=== PATIENT | female | born 1980 | race Caucasian/White ===

== ENCOUNTER 2023-04-07 14:22 | Inpatient (IN) | payer MEDICAID, OTHER ==
--- NOTE | 2023-04-07 15:56 | ED ---
Psych HPI - General Chief Complaint: Psychiatric Symptoms Stated Complaint: depression Time Seen by Provider: 04/07/23 15:55 Source: patient, RN notes reviewed Mode of arrival: ambulatory - History of Present Illness Initial Comments: Patient is a 43-year-old female presenting to the ER for mental health evaluation. Patient states that she is suicidal. Patient states that she can think of ways of how she would have a plan but does not currently have a plan. Denies any drug or alcohol use. Patient denies any fevers, chills, shortness of breath, chest pain. - Related Data Home Medications Medication Instructions Recorded Confirmed No Known Home Medications 04/07/23 04/07/23 Allergies Allergy/AdvReac Type Severity Reaction Status Date / Time No Known Allergies Allergy Verified 04/07/23 18:19 Review of Systems ROS Statement: Those systems with pertinent positive or pertinent negative responses have been documented in the HPI. ROS Other: All systems not noted in ROS Statement are negative. Past Medical History Past Medical History: Asthma, COPD Past Surgical History: Orthopedic Surgery Past Psychological History: Anxiety, Bipolar Smoking Status: Current every day smoker Past Alcohol Use History: None Reported Past Drug Use History: None Reported General Exam - General Exam Comments Initial Comments: Visual Physical Exam Vital signs reviewed General: Well-appearing, nontoxic, no acute distress. Head: Normocephalic, atraumatic Eyes: PERRLA, EOMI ENT: Airway patent Chest: Nonlabored breathing Skin: No visual rash, normal skin tone Neuro: Alert and oriented 3 Musculoskeletal: No gross abnormalities Limitations: no limitations General appearance: alert, in no apparent distress Respiratory exam: Present: normal lung sounds bilaterally. Absent: respiratory distress, wheezes, rales, rhonchi, stridor Cardiovascular Exam: Present: regular rate, normal rhythm, normal heart sounds. Absent: systolic murmur, diastolic murmur, rubs, gallop, clicks Neurological exam: Present: alert, oriented X3, CN II-XII intact Psychiatric exam: Present: depressed, anxious, suicidal ideation Skin exam: Present: warm, dry, intact, normal color. Absent: rash Course Vital Signs 04/07/23 14:37 Temperature 98 F Pulse Rate 80 Respiratory 20 Rate Blood Pressure 116/70 O2 Sat by Pulse 98 Oximetry Medical Decision Making - Medical Decision Making Was pt. sent in by a medical professional or institution (, PA, GREEN MEAT GRADER, urgent care, hospital, or fci...) When possible be specific @ -No Did you speak to anyone other than the patient for history (EMS, parent, family, police, friend...)? What history was obtained from this source @ -No Did you review nursing and triage notes (agree or disagree)? Why? @ -I reviewed and agree with nursing and triage notes Were old charts reviewed (outside hosp., previous admission, EMS record, old EKG, old radiological studies, urgent care reports/EKG's, fci records)? Report findings @ -No old charts were reviewed Differential Diagnosis (chest pain, altered mental status, abdominal pain women, abdominal pain men, vaginal bleeding, weakness, fever, dyspnea, syncope, headache, dizziness, GI bleed, back pain, seizure, CVA, palpatations, mental health, musculoskeletal)? @ -[Differential Mental Health Depression, anxiety, bipolar, psychosis, schizophrenia, borderline personality, situational depression, adjustment disorder, behavioral disorder, brain tumor, malingering, substance abuse, encephalopathy, medication reaction, dementia, hypothyroidism, degenerative neurologic disorder, lupus.... This is not meant to be all-inclusive list EKG interpreted by me (3pts min.). @ -None X-rays interpreted by me (1pt min.). @ -None done CT interpreted by me (1pt min.). @ -None done U/S interpreted by me (1pt. min.). @ -None done What testing was considered but not performed or refused? (CT, X-rays, U/S, labs)? Why? @ -[Urine drug screen and urine hCG were ordered but not performed due to patient refusing. What meds were considered but not given or refused? Why? @ -None Did you discuss the management of the patient with other professionals (professionals i.e. GERMAINE Becerra, GREEN MEAT GRADER, lab, RT, psych nurse, social security assessor, telephone triage nurse, teacher, safety security officer, showcase maker)? Give summary @ -Yes, I discussed this case with Lisette from psych. She states patient will be admitted for further evaluation and care. Was smoking cessation discussed for >3mins.? @ -No Was critical care preformed (if so, how long)? @ -No Were there social determinants of health that impacted care today? How? ( Homelessness, low income, unemployed, alcoholism, drug addiction, transportation, low edu. Level, literacy, decrease access to med. care, longterm, rehab)? @ -No Was there de-escalation of care discussed even if they declined (Discuss DNR or withdrawal of care, Hospice)? DNR status @ -No What co-morbidities impacted this encounter? (DM, HTN, Smoking, COPD, CAD, Cancer, CVA, ARF, Chemo, Hep., AIDS, mental health diagnosis, sleep apnea, morbid obesity)? @ -[Mental Health Was patient admitted / discharged? Hospital course, mention meds given and route, prescriptions, significant lab abnormalities, going to OR and other pertinent info. @ -[Admitted. Patient is a 43-year-old female presented ER chief complaint of a mental health evaluation. Upon examination, patient's vitals are stable. Physical exam was completed and patient was medically clear. BAT was 0.00. Urine drug screen and urine hCG were ordered but patient refused. I discussed this case with Lisette from psych and she stated patient will be admitted for further care. Patient received PO ativan for agitation in the ER. PRN Ativan was ordered. COVID swab was ordered for admission. Patient will be admitted for further evaluation and care by psychiatry. Undiagnosed new problem with uncertain prognosis? @ -No Drug Therapy requiring intensive monitoring for toxicity (Heparin, Nitro, Insulin, Cardizem)? @ -No Were any procedures done? @ -No Diagnosis/symptom? @ -Suicidal ideation/depression Acute, or Chronic, or Acute on Chronic? @ -Acute on chronic Uncomplicated (without systemic symptoms) or Complicated (systemic symptoms)? @ -Uncomplicated Side effects of treatment? @ -No Exacerbation, Progression, or Severe Exacerbation? @ -No Poses a threat to life or bodily function? How? (Chest pain, [place], [place], pneumonia, PE, COPD, DKA, ARF, appy, cholecystitis, CVA, Diverticulitis, Homicidal, Suicidal, threat to staff... and all critical care pts) @ -Yes - Lab Data Lab Results 04/07/23 Range/Units 19:31 SARS-CoV-2 (PCR) Not Detected (Not Detectd) Disposition Clinical Impression: Depression, Suicidal ideation Disposition: ADMITTED IP TO THIS HOSP Condition: Stable Time of Disposition: 22:23
[2023-04-07] MEDS: LORazepam 2 MG/ML INJ IM STA ×2 (20:35→21:22)
[2023-04-07] MEDS ORDERED: LORazepam 1 MG TAB PO STA (20:37)
[2023-04-07] MEDS ORDERED: MAG HYDROX/AL HYDROX/SIMETH 30 ML CUP PO PRN (21:50)
[2023-04-07] MEDS ORDERED: LORazepam 2 MG/ML INJ IM PRN (21:50)
[2023-04-07] MEDS ORDERED: HALOPERIDOL LACTATE 5 MG/ML 1 ML VIAL IM PRN (21:50)
[2023-04-07] MEDS ORDERED: MAGNESIUM HYDROXIDE 2,400 MG/30 ML CUP PO PRN (21:50)
[2023-04-07] MEDS ORDERED: traZODone HCL 50 MG TAB PO PRN (21:50)
[2023-04-07] MEDS ORDERED: OLANZapine 10 MG VIAL IM PRN (21:50)
[2023-04-07] MEDS ORDERED: LORazepam 1 MG TAB PO PRN (21:50)
[2023-04-08] MEDS: NICOTINE 21MG/24HR PATCH TRANSDERM SCH ×2 (00:07→08:41)
[2023-04-08 11:54] LABS: Basophils # (A) 0.1 k/uL (0-0.2); Basophils % (A) 1 %; Eosinophils # (A) 0.1 k/uL (0-0.7); Eosinophils % (A) 2 %; HGB 13.5 gm/dL (11.4-16.0); Lymphocytes # (A) 1.6 k/uL (1.0-4.8); Lymphocytes % (A) 33 %; MCH 29.2 pg (25.0-35.0); MCHC 32.2 g/dL (31.0-37.0); MCV 90.6 fL (80.0-100.0); Mean Platelet Volume 7.6; Monocytes # (A) 0.4 k/uL (0-1.0); Monocytes % (A) 8 %; Neutrophils # (A) 2.6 k/uL (1.3-7.7); Neutrophils % (A) 53 %; Platelet Count 258 k/uL (150-450); RBC 4.63 m/uL (3.80-5.40); RDW 13.3 % (11.5-15.5)
[2023-04-08 12:06] LABS: ALT 12 U/L (4-34); AST 22 U/L (14-36); African American GFR (CKD) >90 (>60 ml/min/1.73 sqM); Albumin 3.5 g/dL (3.5-5.0); Alkaline Phosphatase 69 U/L (38-126); Anion Gap 5 mmol/L; Blood Urea Nitrogen 14 mg/dL (7-17); Calcium 8.8 mg/dL (8.4-10.2); Carbon Dioxide 30 mmol/L (22-30); Chloride 101 mmol/L (98-107); Glucose 93 mg/dL (74-99); Non-African American GFR(CKD) >90 (>60 ml/min/1.73 sqM); Potassium 4.3 mmol/L (3.5-5.1); Sodium 136 mmol/L (137-145); Total Bilirubin 0.3 mg/dL (0.2-1.3); Total Protein 6.2 g/dL (6.3-8.2)
[2023-04-08] MEDS ORDERED: hydrOXYzine HCL 25 MG TAB PO PRN (12:13)
[2023-04-08] MEDS ORDERED: ALBUTEROL INHALER 60 PUFF/8 GM INHALER (MHU) INHALATION PRN (12:14)
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
[2023-04-08] MEDS: LURASIDONE 40 MG TAB PO SCH (13:08)
[2023-04-08 23:35] LABS: Chol/HDL Ratio 1.92 Ratio; LDL Cholesterol,Calculated 53.4 mg/dL (0.0-131.0); VLDL Calculation 10.68 mg/dL (5.00-40.00)
--- NOTE | 2023-04-09 02:07 | P.CONS ---
History of Present Illness - Reason for Consult Consult date: 04/08/23 - History of Present Illness The patient is a 43-year-old female currently experiencing homelessness with a PMH of polysubstance abuse who presented to the emergency room with complaints of depression and suicidal ideation. The patient reported intermittent right hip pain with occasional difficulty walking. She denied any additional complaints. Denied experiencing chest discomfort, shortness of breath, fever, chills, cough, nausea, vomiting, abdominal pain, diarrhea. Reports smoking 1 pack is significantly with marijuana abuse. Denied any additional substance use. Denied alcohol use. Review of systems: Pertinent positives and negatives as discussed in HPI, a complete review of systems was performed and all other systems are negative. Physical examination: General: non toxic, no distress, appears at stated age, normal weight Derm: no unusual rashes/lesions, no unusual ecchymoses, warm, dry Head: atraumatic, normocephalic, symmetric Eyes: EOMI, no lid lag, anicteric sclera ENT: Nose and ears atraumatic, no thrush, no pharyngeal erythema Neck: trachea midline, supple Mouth: no lip lesion, mucus membranes moist Cardiovascular: S1S2 reg, no murmur, no edema Lungs: CTA bilateral, no rhonchi, no rales , no accessory muscle use Abdominal: soft, nontender to palpation, no guarding Ext: no gross muscle atrophy, no contractures, Neuro: No gross focal neuro deficits noted Psych: Alert, oriented, appropriate affect Assessment: Right hip pain Tobacco and marijuana abuse Depression and suicidal ideation Imaging: None performed Data Review: Laboratory evaluation remarkable for WBC count 5.0, sodium 136, total protein 6 .2, HDL 69.9, and COVID-19 negative. Plan: Obtain right hip x-ray Advised on importance of tobacco and marijuana cessation Defer management of depression and suicidal ideation to primary psychiatry service Thank you for allowing us to participate in the care of this patient. We will follow peripherally. Do not hesitate to contact us with questions. Someone can be reached from the [facility] hospitalist group at all hours of the day at [phone]. Past Medical History Past Medical History: Asthma, COPD Past Surgical History: Orthopedic Surgery Past Psychological History: Anxiety, Bipolar Smoking Status: Current every day smoker Past Alcohol Use History: None Reported Past Drug Use History: None Reported Medications and Allergies Home Medications Medication Instructions Recorded Confirmed Type No Known Home Medications 12/09/23 12/09/23 History Allergies Allergy/AdvReac Type Severity Reaction Status Date / Time No Known Allergies Allergy Verified 04/07/23 18:19 Physical Exam Vitals: Intake and Output 04/08/23 04/08/23 04/09/23 14:59 22:59 06:59 Other: Weight 81.6 kg Results CBC & Chem 7: 04/08/23 11:23 04/08/23 11:23 Labs: Abnormal Lab Results - Last 24 Hours (Table) 04/08/23 Range/Units 11:23 Sodium 136 L (137-145) mmol/L Total Protein 6.2 L (6.3-8.2) g/dL HDL Cholesterol 69.90 H (40.00-60.00) mg/dL
[2023-04-09] MEDS: LURASIDONE 40 MG TAB PO SCH (09:04)
[2023-04-09] MEDS: NICOTINE 21MG/24HR PATCH TRANSDERM SCH (09:04)
[2023-04-09] MEDS: IBUPROFEN 600 MG TAB PO PRN (09:05)
--- NOTE | 2023-04-09 13:12 | P.PN ---
Progress Note - Text Progress Note Date: 04/09/23 Interval History: Patient was seen wandering the hallways and was directable and agreeable to sp alfonso with property underwriter in the office. Patient tearful during interview. States that she's just been sad, and now that she's taking medication, she's feeling a bit better. States she did not sleep well last night at all. States her mood and anxiety is mildly improving with medication. Spoke with patient about adding an antidepressant with her medication regimen, patient refused at this time. Patient focused on discharge. Explained to patient that she needs to be more stable, prior to discharge. Patient isolating to her room. At this time patient denies any suicidal or homical ideations, intent or plan. Patient denies any auditory, visual hallucinations and denies any paranoia or delusions. Patient denies any side effects from the medications and has been compliant with meds. Mental Status Exam Appearance: Appears stated age, disheveled, average body built, and no specific features. Attitude and Behavior: Engaged, cooperative, maintained eye contact during course of interview. Speech: fluent and non pressured. Mood: " sad but better" Affect: labile, improving mildly Thought form: Goal directed, linear, and relevant, not incoherent and no clang association. Thought content: Logical, non-delusional, positive suicidal ideation, denies homicidal thoughts, intentions, or plans. Perception: Denies any auditory/ visual or tactile hallucinations. Attention: No impairment. Orientation: Oriented to time, place, person, and situation. Insight & Judgment: impaired Impulse control: Impaired, imrpoving Assessment Bipolar disorder, most recent episode depressive. Alcohol use disorder, moderate, in sustained remission Plan: -Patient continues to meet criteria for inpatient psychiatric admission for symptom stabilization and safety. Patient has signed adult voluntary form and medication consent and was placed in patient's chart. -Medications: increase Latuda 60 mg by mouth with dinner for mood stabilization Trazodone 50 mg by mouth at bedtime scheduled for insomnia Hydroxyzine 25 mg by mouth 3 times a day when necessary for anxiety Continue when necessary psychiatric medications including Haldol for agitation and Ativan for severe anxiety/agitation -When necessary Ativan and Haldol for agitation/aggression. -NRT - [nicotine patch] -SW on board for discharge planning. Encouraged the patient to participate in milieu. d/c in 1-2 days, with a referral to a long term, as patient is currently homeless.
[2023-04-09] MEDS: LURASIDONE 60 MG TAB PO SCH (17:37)
[2023-04-09] MEDS ORDERED: LURASIDONE 40 MG TAB PO SCH (18:00)
[2023-04-09] MEDS: traZODone HCL 50 MG TAB PO SCH (20:22)
--- NOTE | 2023-04-10 10:28 | P.PN ---
Progress Note - Text Progress Note Date: 04/10/23 Interval History: Patient was seen wandering the hallways and was directable and agreeable to sp alfonso with data analyst report writer in the office. Patient less tearful during interview, because of her homelessness situation however does claim that she is mildly improving. States that she's feeling better today in terms of mood and anxiety. States she did sleep well last night. Patient is now attending groups, and not isolating in her room. Patient appears very talkative, and rambling at times. Spoke with patient about the benefits of adding Zoloft, and patient is agreeable to take it. At this time patient denies any suicidal or homicidal ideations, intent or plan. Patient denies any auditory, visual hallucinations and denies any paranoia or delusions. Patient denies any side effects from the medications and has been compliant with meds. insight and judgment mildly improving. Mental Status Exam: Appearance: Appears stated age, fair grooming and hygiene, average body build, and no specific features. Attitude and Behavior: Engaged, cooperative, maintained eye contact during course of interview. Speech: fluent and non pressured. Mood: "pretty good" Affect: labile, improving Thought form: Goal directed, linear, and relevant. focused on discharge Thought content: Logical, non-delusional, denies suicidal ideation, denies homicidal thoughts, intentions, or plans. Perception: Denies any auditory/ visual or tactile hallucinations. Attention: No impairment. Orientation: Oriented to time, place, person, and situation. Insight & Judgment: impaired, improving Impulse control: Impaired, improving Assessment Bipolar disorder, most recent episode depressive. Alcohol use disorder, moderate, in sustained remission Plan: -Patient continues to meet criteria for inpatient psychiatric admission for symptom stabilization and safety. Patient has signed adult voluntary form and me dication consent and was placed in patient's chart. -Medications: add Zoloft 50 mg qd for mood/anxiety, Latuda 60 mg by mouth with dinner for mood stabilization Trazodone 50 mg by mouth at bedtime scheduled for insomnia Hydroxyzine 25 mg by mouth 3 times a day when necessary for anxiety Continue when necessary psychiatric medications including Haldol for agitation and Ativan for severe anxiety/agitation -When necessary Ativan and Haldol for agitation/aggression. -NRT - nicotine patch -SW on board for discharge planning. Encouraged the patient to participate in milieu. d/c possibly Sunday/, with a referral to a [facility], as patient is currently homeless.
[2023-04-10] MEDS: NICOTINE 21MG/24HR PATCH TRANSDERM SCH ×2 (11:36→13:17)
[2023-04-10] MEDS: SERTRALINE 50 MG TAB PO SCH (11:36)
[2023-04-10] MEDS: LURASIDONE 60 MG TAB PO SCH (17:39)
[2023-04-10] MEDS: traZODone HCL 50 MG TAB PO SCH (20:23)
[2023-04-11] MEDS: SERTRALINE 50 MG TAB PO SCH (09:00)
[2023-04-11] MEDS: NICOTINE 21MG/24HR PATCH TRANSDERM SCH (09:00)
[2023-04-11 09:21] VITALS: BP 136/84; PULSE 110; RESP 17; TEMP 97.4
[2023-04-11] MEDS: IBUPROFEN 600 MG TAB PO PRN (09:31)
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
== END 2023-04-11 13:13 | disposition home or self-care (01) | DRG 753 ==
LOC: EC 14:22 → 3MHU 21:48
PROVIDERS: ADMIT Psychiatry & Neurology Psychiatry; ATTEND Psychiatry & Neurology Psychiatry
DX: F31.30 Bipolar disorder, current episode depressed, mild or moderate severity, unspecified (principal); G47.00 Insomnia, unspecified; R45.851 Suicidal ideations; F17.210 Nicotine dependence, cigarettes, uncomplicated; J44.9 Chronic obstructive pulmonary disease, unspecified; F12.10 Cannabis abuse, uncomplicated; R45.1 Restlessness and agitation; F10.11 Alcohol abuse, in remission; Z28.310 Unvaccinated for COVID-19; Z28.21 Immunization not carried out because of patient refusal; Z11.52 Encounter for screening for COVID-19; Z63.5 Disruption of family by separation and divorce; Z59.00 Homelessness unspecified; Z56.0 Unemployment, unspecified; Z71.51 Drug abuse counseling and surveillance of drug abuser; Z71.41 Alcohol abuse counseling and surveillance of alcoholic; Z71.89 Other specified counseling; Z79.899 Other long term (current) drug therapy; Z60.8 Other problems related to social environment; Z63.4 Disappearance and death of family member; Z91.51 Personal history of suicidal behavior
CPT/HCPCS: 80053; 80061; 82075; 83036; 84443; 85025; 87635; 99285

== ENCOUNTER 2024-02-19 13:22 | Inpatient (IN) | payer MEDICAID, OTHER ==
--- NOTE | 2024-02-19 14:34 | ED ---
Psych HPI - General Chief Complaint: Psychiatric Symptoms Stated Complaint: Suicidal ideations Time Seen by Provider: 02/19/24 14:07 Source: patient, RN notes reviewed Mode of arrival: ambulatory Limitations: no limitations - History of Present Illness Initial Comments: This is a 44-year-old female who presents to the emergency department for psychiatric evaluation. States that she is homeless and sleeping in a shed. She has been increasingly depressed as a result of her situation. Earlier today she had a plan to kill herself by overdosing on heroin. States that she does not currently feel that way, however she is very depressed and feels like she needs to be monitored here. Denies any homicidal ideations or auditory/visual hallucinations. States that she is supposed to be on psychiatric medication but is not taking any. Unsure what medication she is supposed to be taking. MD Complaint: feels depressed - Related Data Home Medications Medication Instructions Recorded Confirmed No Known Home Medications 02/19/24 02/19/24 Allergies Allergy/AdvReac Type Severity Reaction Status Date / Time tomato AdvReac Face gets Verified 02/19/24 16:54 blotchy Review of Systems ROS Statement: Those systems with pertinent positive or pertinent negative responses have been documented in the HPI. ROS Other: All systems not noted in ROS Statement are negative. Past Medical History Past Medical History: Asthma, COPD History of Any Multi-Drug Resistant Organisms: None Reported Past Surgical History: Orthopedic Surgery Past Psychological History: Anxiety, Bipolar Smoking Status: Current every day smoker Past Alcohol Use History: None Reported Past Drug Use History: None Reported General Exam Limitations: no limitations General appearance: alert, in no apparent distress Head exam: Present: atraumatic, normocephalic, normal inspection Respiratory exam: Present: normal lung sounds bilaterally. Absent: respiratory distress, wheezes, rales, rhonchi, stridor Cardiovascular Exam: Present: regular rate, normal rhythm, normal heart sounds. Absent: systolic murmur, diastolic murmur, rubs, gallop, clicks Neurological exam: Present: alert, oriented X3, CN II-XII intact Psychiatric exam: Present: normal affect, depressed Skin exam: Present: warm, dry, intact, normal color. Absent: rash Course Vital Signs 02/19/24 14:01 Temperature 98.1 F Pulse Rate 98 Respiratory 18 Rate Blood Pressure 143/74 O2 Sat by Pulse 97 Oximetry Medical Decision Making - Medical Decision Making This is a 44 year old female who presents to the emergency department for psychiatric evaluation. Was pt. sent in by a medical professional or institution? @ -No Did you speak to anyone other than the patient for history? @ -No Did you review nursing and triage notes? @ -Yes, and I agree, it is accurate with regards to the patient's symptoms. Were old charts reviewed? @ -No Differential Diagnosis? @ -Differential Mental Health Depression, anxiety, bipolar, psychosis, schizophrenia, borderline personality, situational depression, adjustment disorder, behavioral disorder, brain tumor, malingering, substance abuse, encephalopathy, medication reaction, dementia, hypothyroidism, degenerative neurologic disorder, lupus.... This is not meant to be all-inclusive list EKG interpreted by me (3pts min.)? @ -Not obtained X-rays interpreted by me (1pt min.)? @ -Not obtained CT interpreted by me (1pt min.)? @ -Not obtained U/S interpreted by me (1pt. min.)? @ -Not obtained What testing was considered but not performed? (CT, X-rays, U/S, labs)? Why? @ -None What meds were considered but not given? Why? @ -None Did you discuss the management of the patient with other professionals? @ -Yes, Sahil with [facility], who advised that the patient will sign herself in voluntarily for further psychiatric care Did you reconcile home meds? @ -No Was smoking cessation discussed for >3mins.? @ -No Was critical care preformed (if so, how long)? @ -No Were there social determinants of health that impacted care today? How? (Homelessness, low income, unemployed, alcoholism, drug addiction, transportation, low edu. Level, literacy, decrease access to med. care, [facility], rehab)? @ -Homelessness, contributing to her mental state. Was there de-escalation of care discussed even if they declined? (Discuss DNR or withdrawal of care, Hospice)? @ -No What co-morbidities impacted this encounter? (DM, HTN, Smoking, COPD, CAD, Cancer, CVA, Hep., AIDS, mental health diagnosis, sleep apnea, morbid obesity)? @ -Mental health diagnosis, substance abuse Was patient admitted / discharged? @ -Admitted. Patient's BAT was 0.0 and she was cleared for [facility] evaluation. [facility] evaluated the patient and determined her to meet criteria for inpatient psychiatric hospitalization due to worsening depression with suicidal ideations and plan to OD. She signed herself in voluntarily. Patient admitted to [facility] for further psychiatric care. UDS pending at the time of admission. Undiagnosed new problem with uncertain prognosis? @ -None Drug Therapy requiring intensive monitoring for toxicity (Heparin, Nitro, Insulin, Cardizem)? @ -None Were any procedures done? @ -None Diagnosis/symptom? @ -Suicidal ideations, depression Acute, or Chronic, or Acute on Chronic? @ -Acute Uncomplicated (without systemic symptoms) or Complicated (systemic symptoms)? @ -Uncomplicated Side effects of treatment? @ -None Exacerbation, Progression, or Severe Exacerbation] @ -Not applicable Poses a threat to life or bodily function? @ -Yes, the suicidal ideations can lead to . - Lab Data Lab Results 02/19/24 Range/Units 16:03 SARS-CoV-2 (PCR) Not Detected (Not Detectd) Disposition Clinical Impression: Depression, Suicidal ideations Disposition: TRANSFER TO PSYCH HOSP/UNIT
[2024-02-19] MEDS ORDERED: MAGNESIUM HYDROXIDE 2,400 MG/30 ML CUP PO PRN (17:49)
[2024-02-19] MEDS ORDERED: haloperidoL 5 MG TAB PO PRN (17:49)
[2024-02-19] MEDS ORDERED: HALOPERIDOL LACTATE 5 MG/ML 1 ML VIAL IM PRN (17:49)
[2024-02-19] MEDS ORDERED: ACETAMINOPHEN TAB 325 MG TAB PO PRN (17:49)
[2024-02-19] MEDS ORDERED: MAG HYDROX/AL HYDROX/SIMETH 355 ML BOTTLE PO PRN (17:49)
[2024-02-19] MEDS ORDERED: LORazepam 2 MG/ML INJ IM PRN (17:49)
[2024-02-19] MEDS: NICOTINE 14MG/24HR PATCH TRANSDERM SCH (20:43)
[2024-02-19] MEDS: LORazepam 1 MG TAB PO PRN (21:19)
--- NOTE | 2024-02-19 22:21 | P.PN ---
Progress Note - Text Progress Note Date: 02/19/24 Attempted to see the patient in the [facility] on 02/18 at 2100. The patient refused to be seen or be evaluated.
[2024-02-20 07:00] VITALS: RESP 16
--- NOTE | 2024-02-20 11:53 | P.HP ---
Psychiatric H&P - . H&P Date: 02/20/24 History & Physical: Allergies Allergy/AdvReac Type Severity Reaction Status Date / Time tomato AdvReac Face gets Verified 02/19/24 16:54 blotchy Vital Signs Temp 98.0 F 02/20/24 06:59 Pulse 83 02/20/24 06:59 Resp 16 02/20/24 06:59 BP 127/83 02/20/24 06:59 Pulse Ox 100 02/20/24 06:59 FiO2 Intake & Output 02/19/24 02/20/24 02/20/24 18:59 06:59 18:59 Weight 87.997 kg Laboratory Last Values SARS-CoV-2 (PCR) Not Detected (Not Detectd) 02/19/24 16:03 02/20/24 09:39 IDENTIFYING DATA: Patient is a 44-year-old but female, unemployed and currently homeless CHIEF COMPLAINT: Depression, suicidal thoughts HPI: Patient presented to the hospital with psychiatric concerns. Per ED note, "This is a 44-year-old female who presents to the emergency department for psychiatric evaluation. States that she is homeless and sleeping in a shed. She has been increasingly depressed as a result of her situation. Earlier today she had a plan to kill herself by overdosing on heroin. States that she does not currently feel that way, however she is very depressed and feels like she needs to be monitored here. Denies any homicidal ideations or auditory/visual hallucinations. States that she is supposed to be on psychiatric medication but is not taking any. Unsure what medication she is supposed to be taking." EPS evaluation in the ED revealed increased depression over the last 60 days with current suicidal thoughts with a plan to overdose on heroin. Patient seen and evaluated on the unit and was agreeable to speak to teletypewriter operator in office. She states feeling overwhelmed lately due to numerous psychosocial stressors including homelessness and being unemployed. She reports previously staying at a friend's house however friend was evicted and became upset at her due to friend's belongings being placed by the dumpster per the landlord. Patient states she was forced to sleep in a another friend's shed across the street for 1 night and that this was when her thoughts of not wanting to be here surfaced. She states not having any place to go or any money. She reports not feeling like herself ever since her mother in 2019 and she does not feel like she has fully grieved her loss. She reports sleep difficulties, hopelessness, low energy, poor concentration but reports good appetite. She denies any recent anxiety. Patient denies any suicidal or homicidal ideations intent or plan. At this time patient denies any auditory or visual hallucinations. Patient denies any flight of ideas racing thoughts and increased in goal directed behavior however does report a history of mateusz however has been stable for many years. Patient admits to using cannabis and cigarettes "whenever I have money". PAST PSYCHIATRIC HISTORY: Patient has a history of bipolar disorder and generalized anxiety disorder. Patient denies being on any psychiatric medications. Patient reports 2 prior inpatient hospitalizations, most recent being here on 03/2023. Patient denies any psychiatric outpatient follow-up but most recently was following [facility] however is currently closed. Patient denies any history of suicide attempts in the past. PMH: as per ER note ALLERGIES: as per EMR SUBSTANCE USE HISTORY: Patient has a history of alcohol use disorder however has not drank alcohol since 2011 FAMILY PSYCHIATRIC/SUBSTANCE USE HISTORY: Patient reports father has mental illness and abused alcohol SOCIAL HISTORY: Patient was born in [place]. She is currently homeless however was recently staying at a friend's house. She completed schooling up to ninth grade. She has 2 children and is currently however . She denies any legal history. MENTAL STATUS EXAM: General Appearance: Patient appears to be stated age is alert, directable, and attempts to cooperate. Patient appears to have fair hygiene and grooming. Behavior: Patient is seated without any agitated behavior. Patient ambulates with a limp. Patient was very tearful during encounter Speech: Patient's speech is fluent and nonpressured. Mood/Affect: Patient reports their mood is depressed, affect is congruent and constricted. Suicidality/Homicidality: Patient denies having any homicidal ideation intent or plan. Denies any suicidal ideations intent or plan Perceptions: Patient denies any visual hallucinations and denies any auditory hallucinations Though content/process: There is no evidence of any delusional thought content and thought process is linear and goal-directed. Memory and concentration: AOX3, grossly intact for the purposes of this session. Can spell "WORLD" backwards Judgment and insight: Fair STRENGTHS/WEAKNESSES: strength is that patient is resilient and she has been able to refrain from alcohol despite stressors. Weakness is that patient has poor judgment and is impulsive INTELLECT: Average IMPRESSIONS: Bipolar II disorder, current episode depressed Nicotine dependence Alcohol use disorder, in sustained remission PLAN: -Patient is admitted under voluntary status to MHU for stabilization of psychiatric symptoms and safety. Patient has signed adult voluntary form and medication consent and is placed in patient's chart. -Medications : Start Latuda 40 mg p.o. with dinner for depression, patient encouraged to consume at least 400 marga to increase absorption. Start trazodone 50 mg at bedtime for sleep -Ativan and Haldol PRN for agitation/aggression -Patient was informed of the risks, benefits and side effects of the medication and patient verbally consented to taking the medications. Patient signed med consent form and was placed in chart. -Internal Medicine consult to perform medical evaluation and physical. -NRT -nicotine patch -SW on board for discharge planning. Encourage patient to participate in groups to work on coping skills. Anticipate discharge to sober living community such as [facility] or [facility], either late this week or early next week
[2024-02-20 13:01] LABS: Basophils % (A) 1 %; Eosinophils # (A) 0.1 k/uL (0-0.7); Eosinophils % (A) 1 %; HCT 41.5 % (34.0-46.0); HGB 13.8 gm/dL (11.4-16.0); Lymphocytes # (A) 1.9 k/uL (1.0-4.8); Lymphocytes % (A) 28 %; MCH 29.7 pg (25.0-35.0); MCHC 33.2 g/dL (31.0-37.0); MCV 89.6 fL (80.0-100.0); Mean Platelet Volume 7.5; Monocytes # (A) 0.6 k/uL (0-1.0); Monocytes % (A) 8 %; Neutrophils # (A) 4.1 k/uL (1.3-7.7); Neutrophils % (A) 61 %; Platelet Count 255 k/uL (150-450); RBC 4.63 m/uL (3.80-5.40); RDW 13.6 % (11.5-15.5); WBC 6.8 k/uL (3.8-10.6)
[2024-02-20 13:24] LABS: ALT 17 U/L (4-34); AST 27 U/L (14-36); African American GFR (CKD) >90 (>60 ml/min/1.73 sqM); Albumin 3.9 g/dL (3.5-5.0); Alkaline Phosphatase 63 U/L (38-126); Anion Gap 4 mmol/L; Bilirubin, Delta 0.1 mg/dL (0.0-0.2); Bilirubin,Unconjugated 0.5 mg/dL (0.0-1.1); Blood Urea Nitrogen 15 mg/dL (7-17); Carbon Dioxide 29 mmol/L (22-30); Chloride 105 mmol/L (98-107); Glucose 74 mg/dL (74-99); Non-African American GFR(CKD) >90 (>60 ml/min/1.73 sqM); Potassium 4.3 mmol/L (3.5-5.1); Sodium 138 mmol/L (137-145); Total Bilirubin 0.6 mg/dL (0.2-1.3); Total Protein 6.5 g/dL (6.3-8.2)
[2024-02-20 15:19] LABS: Cocaine Screen,Urine Not Detected (NotDetected); Opiate Screen,Urine Not Detected (NotDetected); Phencyclidine Screen,Urine Not Detected (NotDetected); Urn Cannabinoid Scrn Detected (NotDetected)
[2024-02-20 15:20] LABS: Amphetamine Screen,Urine Detected (NotDetected); Barbiturate Screen,Urine Not Detected (NotDetected); Benzodiazepines Screen,Urine Detected (NotDetected); Methadone Screen, Urine Not Detected (NotDetected); Oxycodone Screen, Urine Not Detected (NotDetected); Tricyclic Antidepressant,Urine Not Detected (NotDetected)
[2024-02-20 15:25] LABS: Appearance,Urine Cloudy (Clear); Bacteria,Urine Rare /hpf; Bilirubin,Urine Negative (Negative); Blood,Urine Negative (Negative); Color,Urine Yellow; Glucose,Urine (UA) Negative (Negative); Ketones,Urine Negative (Negative); Leukocyte Esterase,Urine Moderate (Negative); Mucus,Urine Few /hpf; Nitrite,Urine Negative (Negative); Protein,Urine Trace (Negative); RBC,Urine 5 /hpf (0-5); Squamous Epithelial Cell,Urine 19 /hpf (0-4); Urobilinogen,Urine <2.0 mg/dL (<2.0); WBC,Urine 4 /hpf (0-5)
[2024-02-20] MEDS: LURASIDONE 40 MG TAB PO SCH (18:06)
[2024-02-20 21:29] LABS: Chol/HDL Ratio 2.07 Ratio; LDL Cholesterol,Calculated 72.2 mg/dL (0.0-131.0); VLDL Calculation 10.88 mg/dL (5.00-40.00)
[2024-02-20] MEDS: traZODone HCL 50 MG TAB PO SCH (21:56)
--- NOTE | 2024-02-21 05:22 | P.PN ---
Progress Note - Text Progress Note Date: 02/20/24 I personally saw and examined this patient on attempted to see the patient in the MHU on 02/19 at 2100. The patient refused to be seen or be evaluated.
--- NOTE | 2024-02-21 12:24 | P.PN ---
Progress Note - Text Progress Note Date: 02/21/24 Interval History: Patient was seen wandering the hallways and was directable and agreeable to sp charlesk with information writer in the office. She reports sleeping better last night with the medications and stable mood today. She reports some fatigue related to the medication. Magnetic Doctor inquired about patient's positive UDS for amphetamines to which patient states that this was a one-time thing and she normally does not use meth however her friend had some prior to admission. She vehemently denied any ongoing meth use and does not feel like this is an issue for her however was agreeable to contacting [facility] as she is homeless. Patient later on contacted information writer and states that [facility] was too far for her and that she was willing to be discharged to her friend's house in town. She denied any access to any firearms at this house. She states her ex had contacted the friend on her behalf as the friend does not have a phone to contact. Patient does appear to be minimizing her drug use however appears to be precontemplative as far as willingness to accept help for it. Patient otherwise is attending groups and has been appropriate on the unit. At this time patient denies any suicidal or homicidal ideations, intent or plan. Patient denies any auditory, visual hallucinations and denies any paranoia or delusions. Patient denies any side effects from the medications and has been compliant with meds. Mental Status Exam: General Appearance: Patient appears to be stated age is alert, directable, and cooperative. Patient has long brown hair and poor dentition Behavior: Patient appeared a little restless. Speech: Patient's speech is fluent and nonpressured. Mood/Affect: Mood is improving mildly, affect is congruent and reactive. Suicidality/Homicidality: Patient denies having any suicidal or homicidal ideation intent or plan. Perceptions: Patient denies any visual hallucinations and denies any auditory hallucinations Though content/process: There is no evidence of any delusional thought content and thought process is linear and goal-directed. Memory and concentration: AOX3, grossly intact for the purposes of this session Judgment and insight: poor Assessment Bipolar II disorder, current episode depressed Nicotine dependence Rule out stimulant use disorder Alcohol use disorder, in sustained remission Plan: -Patient continues to meet criteria for inpatient psychiatric admission for symptom stabilization and safety. Patient has signed adult voluntary form and medication consent and was placed in patient's chart. -Medications: Continue Latuda 40 mg p.o. with dinner for depression, trazodone 50 mg at bedtime for sleep -When necessary Ativan and Haldol for agitation/aggression. -Labs: Reviewed -NRT -nicotine patch -SW on board for discharge planning. Encouraged the patient to participate in milieu. Anticipate discharge tomorrow, with friend as patient declined substance use treatment
[2024-02-21] MEDS: NICOTINE GUM (POLACRILEX) 2 MG GUM BUCCAL PRN (14:16)
[2024-02-21] MEDS: IBUPROFEN 600 MG TAB PO PRN (14:16)
[2024-02-22 06:45] VITALS: BP 112/74; PULSE 77; TEMP 97.7
--- NOTE | 2024-02-22 12:50 | P.DS ---
Providers Date of admission: 02/19/24 17:32 Expected date of discharge: 02/22/24 Attending physician: Ananya Hernandez MD Consults: 02/19/24 17:49 Consult Physician Routine Consulting Provider: Dede Martinez Consult Reason/Comments: History and Physical, New admission Do you want consulting provider notified?: Yes Primary care physician: Stated None - Discharge Diagnosis(es) (1) Bipolar disorder current episode depressed Current Visit: Yes Status: Acute Priority: High (2) Nicotine dependence Current Visit: Yes Status: Acute Priority: Low (3) Stimulant abuse Current Visit: Yes Status: Acute Priority: Low (4) Alcohol use disorder, moderate, in sustained remission Current Visit: No Status: Resolved Priority: Low Hospital Course: Admission HPI: Admission note was completed by database report writer" Patient presented to the hospital with psychiatric concerns. Per ED note, "This is a 44-year-old female who presents to the emergency department for psychiatric evaluation. States that she is homeless and sleeping in a shed. She has been increasingly depressed as a result of her situation. Earlier today she had a plan to kill herself by overdosing on heroin. States that she does not currently feel that way, however she is very depressed and feels like she needs to be monitored here. Denies any homicidal ideations or auditory/visual hallucinations. States that she is suppo sed to be on psychiatric medication but is not taking any. Unsure what medication she is supposed to be taking." EPS evaluation in the ED revealed increased depression over the last 60 days with current suicidal thoughts with a plan to overdose on heroin. Patient seen and evaluated on the unit and was agreeable to speak to database report writer in office. She states feeling overwhelmed lately due to numerous psychosocial stressors including homelessness and being unemployed. She reports previously staying at a friend's house however friend was evicted and became upset at her due to friend's belongings being placed by the dumpster per the landlord. Patient states she was forced to sleep in a another friend's shed across the street for 1 night and that this was when her thoughts of not wanting to be here surfaced. She states not having any place to go or any money. She reports not feeling like herself ever since her mother in 2019 and she does not feel like she has fully grieved her loss. She reports sleep difficulties, hopelessness, low energy, poor concentration but reports good appetite. She denies any recent anxiety. Patient denies any suicidal or homicidal ideations intent or plan. At this time patient denies any auditory or visual hallucinations. Patient denies any flight of ideas racing thoughts and increased in goal directed behavior however does report a history of mateusz however has been stable for many years. Patient admits to using cannabis and cigarettes "whenever I have money"." Hospital course: Upon admission to the unit patient was directable and agreeable to commence treatment and signed adult voluntary form.. Patient got along well with other patients on the unit and followed unit protocol. Patient was compliant with the medications and denied any side effects throughout hospital course. Patient was started on Latuda 40 mg with dinner for depression, trazodone 50 mg at bedtime for sleep. Patient spoke of her stressors and engaged in therapy both group and individual. Patient was also seen by medical team for history and physical exam. Throughout the course of the hospitalization patient gradually improved with regards to mood, anxiety, sleep and returned back to their baseline level of functioning became more future oriented with improved insight and judgment. On the day of discharge patient denied any suicidal or homicidal ideations intent or plan denied any auditory or visual hallucinations. The patient denied any access to guns or weapons. Patient denied any paranoia and did not endorse any delusions. Patient does have a significant history of substance abuse and was counseled on abstaining from all substances including alcohol and meth. Patient was initially agreeable to be discharged to [place] given her po sitive UDS for amphetamines however she later declined and preferred to be discharged to her friend's house instead. Patient was strongly encouraged to discontinue her meth use however patient denied having any problems with using meth as she states using it occasionally with friends. Patient was also counseled on the medications and need for regular compliance and was encouraged to follow-up with their outpatient appointment for mental health and also for primary care. Mental status exam: General Appearance: Patient appears to be stated age is alert, pleasant, and cooperative. Patient is in no acute distress and has improved hygiene and grooming Behavior: Patient is calmly seated without any agitated behavior. Speech: Patient's speech is fluent and nonpressured. Mood/Affect: Patient reports their mood is "better", affect is congruent and euthymic, reactive. Suicidality/Homicidality: Patient denies having any suicidal or homicidal ideation intent or plan. Perceptions: Patient denies any auditory or visual hallucinations. Though content/process: There is no evidence of any delusional thought content and thought process is linear and goal-directed. More future oriented Memory and concentration: AOX3, grossly intact for the purposes of this session. Can spell "WORLD" backwards correctly. Judgment and insight: improved with guarded prognosis Impression: Bipolar disorder, current episode depressed Nicotine dependence Stimulant abuse Alcohol use disorder, in sustained remission Plan: -Continue with discharge today as patient has improved and stabilized psychiatrically and is not currently an imminent threat to themself and/or others. Patient will remain at chronically elevated risk for harm to self and/or others due to their impulsivity and substance abuse. -Continue medications: Continue Latuda 40 mg p.o. with dinner, trazodone 50 mg as needed at bedtime -Patient was counseled on the need for medication compliance and appropriate follow-up at mental health and also primary care for medical issues. Patient verbalized understanding and agreed. -Social work to help coordinate patients discharge today. also to ensure safe home environment that guns/weapons are either removed from the home or locked away. Social work also to arrange for patients follow up appointments with [facility] for psychiatric care along with follow up with primary care provider. -Patient counseled on abstaining from recreational drugs and marijuana and alcohol. Was informed/educated on the adverse effects on their physical and mental health. Patient verbally agreed and understood. Patient was offered substance abuse treatment however declined at this time. -Patient was instructed to return to the hospital or seek immediate medical care if their psychiatric or medical symptoms do worsen or reoccur. Abnormal Labs 02/19/24 02/20/24 14:34 12:25 HDL Cholesterol 77.90 H Urine Appearance Cloudy H Urine Protein Trace H Ur Leukocyte Esterase Moderate H Ur Squamous Epith Cells 19 H Urine Bacteria Rare H Urine Mucus Few H Ur Amphetamines Screen Detected H U Methamphetamines Scrn Detected H U Benzodiazepines Scrn Detected H U Marijuana (THC) Screen Detected H Vital Signs Temp 97.7 F 02/22/24 06:00 Pulse 77 02/22/24 06:00 Resp 16 02/22/24 06:00 BP 112/74 02/22/24 06:00 Pulse Ox 98 02/22/24 06:00 FiO2 Allergies Allergy/AdvReac Type Severity Reaction Status Date / Time tomato AdvReac Face gets Verified 02/19/24 16:54 blotchy Plan - Discharge Summary Discharge Rx Participant: No New Discharge Prescriptions: New traZODone HCL [Desyrel] 50 mg PO HS PRN 30 Days #30 tab PRN Reason: Insomnia Nicotine 14Mg/24Hr Patch [Habitrol] 1 patch TRANSDERM DAILY 30 Days #30 patch Lurasidone [Latuda] 40 mg PO 1800 30 Days #30 tab Discharge Medication List Lurasidone [Latuda] 40 mg PO 1800 30 Days #30 tab 02/22/24 [Rx] Nicotine 14Mg/24Hr Patch [Habitrol] 1 patch TRANSDERM DAILY 30 Days #30 patch 02/22/24 [Rx] traZODone HCL [Desyrel] 50 mg PO HS PRN 30 Days #30 tab 02/22/24 [Rx] Follow up Appointment(s)/Referral(s): [facility] [NON-STAFF] - 1 Week [facility] [NON-STAFF] - 02/29/24 2:00 pm (Frances Spence at the address listed above. ) Patient Instructions/Handouts: How to Stop Smoking (DC), Bipolar Disorder (DC) Activity/Diet/Wound Care/Special Instructions: Avoid the use of street drugs and alcohol. Take all medications as prescribed. When you are in need of refills on your medications, please contact your medical provider and/or outpatient psychiatrist/provider to have this done. Please go to your scheduled outpatient appointment for aftercare treatment. If symptoms return or become worse, call the crisis line at and/or go to the nearest emergency room for evaluation. National Suicide Hotline 988 Discharge Disposition: HOME SELF-CARE
== END 2024-02-22 13:10 | disposition home or self-care (01) | DRG 753 ==
LOC: EC 13:22 → 3MHU 17:32
PROVIDERS: ADMIT Psychiatry & Neurology Psychiatry; ATTEND Psychiatry & Neurology Psychiatry
DX: F31.30 Bipolar disorder, current episode depressed, mild or moderate severity, unspecified (principal); F10.21 Alcohol dependence, in remission; F15.10 Other stimulant abuse, uncomplicated; F17.200 Nicotine dependence, unspecified, uncomplicated; F41.9 Anxiety disorder, unspecified; J44.89 Other specified chronic obstructive pulmonary disease; R45.851 Suicidal ideations; Z59.00 Homelessness unspecified; Z79.899 Other long term (current) drug therapy; Z81.8 Family history of other mental and behavioral disorders; Z11.52 Encounter for screening for COVID-19
CPT/HCPCS: 80053; 80061; 80306; 81001; 81025; 82075; 82248; 83036; 84443; 85025; 87635; 99285

== ENCOUNTER 2024-03-02 18:20 | Inpatient (IN) | payer MEDICAID, OTHER ==
--- NOTE | 2024-03-02 18:33 | ED ---
General Adult HPI - General Chief complaint: Psychiatric Symptoms Stated complaint: suicidal Time Seen by Provider: 03/02/24 18:32 Source: patient Mode of arrival: ambulatory Limitations: no limitations - History of Present Illness Initial comments: Patient presents to the ED complaining of having suicidal ideations for the past several days. Patient states that she thought about taking all of her pills today to kill herself, but her convinced her not to and made her come to the ED. Patient denies suicidal attempt or medication overdose. Patient admits to smoking marijuana today, but she denies any other illicit drug use. Patient denies alcohol use. Patient denies homicidal ideations, hallucinations, trauma or injury, any pain, fever or chills, dyspnea, dizziness, nausea or vomiting, or any other symptoms or complaints. - Related Data Previous Rx's Medication Instructions Recorded Lurasidone [Latuda] 40 mg PO 1800 30 Days #30 tab 02/22/24 Nicotine 14Mg/24Hr Patch [Habitrol] 1 patch TRANSDERM DAILY 30 Days 02/22/24 #30 patch traZODone HCL [Desyrel] 50 mg PO HS PRN 30 Days #30 tab 02/22/24 Allergies Allergy/AdvReac Type Severity Reaction Status Date / Time tomato AdvReac Face gets Verified 03/02/24 18:31 blotchy Review of Systems ROS Statement: Those systems with pertinent positive or pertinent negative responses have been documented in the HPI. ROS Other: All systems not noted in ROS Statement are negative. Past Medical History Past Medical History: Asthma, COPD History of Any Multi-Drug Resistant Organisms: None Reported Past Surgical History: Orthopedic Surgery Past Anesthesia/Blood Transfusion Reactions: No Reported Reaction Past Psychological History: Anxiety, Bipolar Smoking Status: Current every day smoker Past Alcohol Use History: None Reported Past Drug Use History: Marijuana General Exam Limitations: no limitations General appearance: alert Head exam: Present: atraumatic, normocephalic Eye exam: Present: normal appearance, PERRL, EOMI ENT exam: Present: mucous membranes moist Respiratory exam: Present: other (Scattered expiratory wheezes bilaterally). Absent: respiratory distress, rales, rhonchi, stridor Cardiovascular Exam: Present: regular rate, normal rhythm, normal heart sounds, other (Normal radial pulses bilaterally) GI/Abdominal exam: Present: soft. Absent: tenderness, guarding Extremities exam: Present: normal inspection. Absent: tenderness, pedal edema Neurological exam: Present: alert, oriented X3 Psychiatric exam: Present: depressed, anxious Skin exam: Present: warm, dry, normal color Course Vital Signs 03/02/24 18:27 Temperature 98.2 F Pulse Rate 116 H Respiratory 16 Rate Blood Pressure 136/83 O2 Sat by Pulse 98 Oximetry - Reevaluation(s) Reevaluation #1: 03/02/24 21:11 Patient has been medically cleared and evaluated by EPS in the ED. EPS nurse states that the patient will be admitted to the psychiatric unit on a voluntary basis. Medical Decision Making - Medical Decision Making Was pt. sent in by a medical professional or institution (, PA, EQUIPMENT SERVICE TECHNICIAN, urgent care, hospital, or residential...) When possible be specific @ -No Did you speak to anyone other than the patient for history (EMS, parent, family, police, friend...)? What history was obtained from this source @ -No Did you review nursing and triage notes (agree or disagree)? Why? @ -I reviewed and agree with nursing and triage notes Were old charts reviewed (outside hosp., previous admission, EMS record, old EKG, old radiological studies, urgent care reports/EKG's, residential records)? Report findings @ -No old charts were reviewed Differential Diagnosis (chest pain, altered mental status, abdominal pain women, abdominal pain men, vaginal bleeding, weakness, fever, dyspnea, syncope, headache, dizziness, GI bleed, back pain, seizure, CVA, palpatations, mental health, musculoskeletal)? @ -Suicidal ideations, depression, anxiety, bipolar disorder, psychiatric disease, drug abuse, alcohol abuse, this is not a complete list. EKG interpreted by me (3pts min.). @ -None done X-rays interpreted by me (1pt min.). @ -None done CT interpreted by me (1pt min.). @ -None done U/S interpreted by me (1pt. min.). @ -None done What testing was considered but not performed or refused? (CT, X-rays, U/S, labs)? Why? @ -None What meds were considered but not given or refused? Why? @ -None Did you discuss the management of the patient with other professionals (professionals i.e. , PA, EQUIPMENT SERVICE TECHNICIAN, lab, RT, psych nurse, social worker clinical, glass worker, teacher, tactical deception plans officer, case operator)? Give summary @ -No Was smoking cessation discussed for >3mins.? @ -No Was critical care preformed (if so, how long)? @ -No Were there social determinants of health that impacted care today? How? (Homelessness, low income, unemployed, alcoholism, drug addiction, transportation, low edu. Level, literacy, decrease access to med. care, usp, rehab)? @ -No Was there de-escalation of care discussed even if they declined (Discuss DNR or withdrawal of care, Hospice)? DNR status @ -No What co-morbidities impacted this encounter? (DM, HTN, Smoking, COPD, CAD, Cancer, CVA, ARF, Chemo, Hep., AIDS, mental health diagnosis, sleep apnea, morbid obesity)? @ -None Was patient admitted / discharged? Hospital course, mention meds given and route, prescriptions, significant lab abnormalities, going to OR and other pertinent info. @ - Patient has been medically cleared. Patient has been evaluated by EPS in the ED, and she will be admitted to the psychiatric unit on a voluntary basis. Undiagnosed new problem with uncertain prognosis? @ -No Drug Therapy requiring intensive monitoring for toxicity (Heparin, Nitro, Insulin, Cardizem)? @ -No Were any procedures done? @ -No Diagnosis/symptom? @ -Suicidal ideations and marijuana abuse Acute, or Chronic, or Acute on Chronic? @ -Default Uncomplicated (without systemic symptoms) or Complicated (systemic symptoms)? @ -Default Side effects of treatment? @ -No Exacerbation, Progression, or Severe Exacerbation? @ -No Poses a threat to life or bodily function? How? (Chest pain, USA, PR, pneumonia, PE, COPD, DKA, ARF, appy, cholecystitis, CVA, Diverticulitis, Homicidal, Suicidal, threat to staff... and all critical care pts) @ -Potentially - Lab Data Lab Results 03/02/24 Range/Units 19:51 Urine Opiates Screen Not Detected (NotDetected) Ur Oxycodone Screen Not Detected (NotDetected) Urine Methadone Screen Not Detected (NotDetected) Ur Barbiturates Screen Not Detected (NotDetected) U Tricyclic Antidepress Not Detected (NotDetected) Ur Phencyclidine Scrn Not Detected (NotDetected) Ur Amphetamines Screen Not Detected (NotDetected) U Methamphetamines Scrn Not Detected (NotDetected) U Benzodiazepines Scrn Not Detected (NotDetected) Urine Cocaine Screen Not Detected (NotDetected) U Marijuana (THC) Screen Detected H (NotDetected) Disposition Clinical Impression: Suicidal ideations, Marijuana abuse Disposition: TRANSFER TO PSYCH HOSP/UNIT Condition: Stable Is patient prescribed a controlled substance at d/c from ED?: No Referrals: None,Stated [Primary Care Provider] - 1-2 days Time of Disposition: 21:15
[2024-03-02 20:26] LABS: Amphetamine Screen,Urine Not Detected (NotDetected); Barbiturate Screen,Urine Not Detected (NotDetected); Benzodiazepines Screen,Urine Not Detected (NotDetected); Cocaine Screen,Urine Not Detected (NotDetected); Methadone Screen, Urine Not Detected (NotDetected); Opiate Screen,Urine Not Detected (NotDetected); Oxycodone Screen, Urine Not Detected (NotDetected); Phencyclidine Screen,Urine Not Detected (NotDetected); Tricyclic Antidepressant,Urine Not Detected (NotDetected); Urn Cannabinoid Scrn Detected (NotDetected)
[2024-03-02] MEDS ORDERED: MAGNESIUM HYDROXIDE 2,400 MG/30 ML CUP PO PRN (23:10)
[2024-03-02] MEDS ORDERED: MAG HYDROX/AL HYDROX/SIMETH 355 ML BOTTLE PO PRN (23:10)
[2024-03-02] MEDS ORDERED: traZODone HCL 50 MG TAB PO PRN (23:14)
[2024-03-02] MEDS ORDERED: LORazepam 2 MG/ML INJ IM PRN (23:16)
[2024-03-02] MEDS ORDERED: HALOPERIDOL LACTATE 5 MG/ML 1 ML VIAL IM PRN (23:16)
[2024-03-02] MEDS ORDERED: haloperidoL 5 MG TAB PO PRN (23:16)
[2024-03-02] MEDS: ACETAMINOPHEN TAB 325 MG TAB PO PRN (23:27)
[2024-03-02 23:36] LABS: Appearance,Urine Clear (Clear); Bilirubin,Urine Negative (Negative); Blood,Urine Negative (Negative); Color,Urine Colorless; Glucose,Urine (UA) Negative (Negative); Ketones,Urine Negative (Negative); Leukocyte Esterase,Urine Small (Negative); Mucus,Urine Rare /hpf; Nitrite,Urine Negative (Negative); PH, Urine 5.5 (5.0-8.0); Protein,Urine Negative (Negative); RBC,Urine <1 /hpf (0-5); Specific Gravity,Urine 1.015 (1.001-1.035); Squamous Epithelial Cell,Urine <1 /hpf (0-4); Urobilinogen,Urine <2.0 mg/dL (<2.0); WBC,Urine 4 /hpf (0-5)
[2024-03-03] MEDS: IBUPROFEN 600 MG TAB PO PRN (00:24)
[2024-03-03] MEDS: LORazepam 1 MG TAB PO PRN (00:25)
[2024-03-03] MEDS: NICOTINE 21MG/24HR PATCH TRANSDERM SCH (12:25)
[2024-03-03 12:41] LABS: Basophils % (A) 1 %; Eosinophils # (A) 0.1 k/uL (0-0.7); Eosinophils % (A) 2 %; HCT 42.2 % (34.0-46.0); HGB 13.5 gm/dL (11.4-16.0); Lymphocytes # (A) 1.7 k/uL (1.0-4.8); Lymphocytes % (A) 36 %; MCH 29.3 pg (25.0-35.0); MCHC 32.1 g/dL (31.0-37.0); MCV 91.4 fL (80.0-100.0); Monocytes # (A) 0.4 k/uL (0-1.0); Monocytes % (A) 9 %; Neutrophils # (A) 2.3 k/uL (1.3-7.7); Neutrophils % (A) 50 %; Platelet Count 238 k/uL (150-450); RBC 4.62 m/uL (3.80-5.40); RDW 13.6 % (11.5-15.5); WBC 4.7 k/uL (3.8-10.6)
--- NOTE | 2024-03-03 12:51 | P.HP ---
Psychiatric H&P - . H&P Date: 03/03/24 History & Physical: Allergies Allergy/AdvReac Type Severity Reaction Status Date / Time tomato AdvReac Face gets Verified 03/02/24 23:33 blotchy Vital Signs Temp 98.4 F 03/03/24 06:46 Pulse 79 03/03/24 06:46 Resp 16 03/03/24 06:46 BP 125/78 03/03/24 06:46 Pulse Ox 97 03/03/24 06:46 FiO2 Intake & Output 03/02/24 03/03/24 03/03/24 18:59 06:59 18:59 Weight 86.183 kg 86.183 kg Laboratory Last Values Urine Color Colorless 03/02/24 19:30 Urine Appearance Clear (Clear) 03/02/24 19:30 Urine pH 5.5 (5.0-8.0) 03/02/24 19:30 Ur Specific Poth 1.015 (1.001-1.035) 03/02/24 19:30 Urine Protein Negative (Negative) 03/02/24 19:30 Urine Glucose (UA) Negative (Negative) 03/02/24 19:30 Urine Ketones Negative (Negative) 03/02/24 19:30 Urine Blood Negative (Negative) 03/02/24 19:30 Urine Nitrite Negative (Negative) 03/02/24 19:30 Urine Bilirubin Negative (Negative) 03/02/24 19:30 Urine Urobilinogen <2.0 mg/dL (<2.0) 03/02/24 19:30 Ur Leukocyte Esterase Small (Negative) H 03/02/24 19:30 Urine RBC <1 /hpf (0-5) 03/02/24 19:30 Urine WBC 4 /hpf (0-5) 03/02/24 19:30 Ur Squamous Epith Cells <1 /hpf (0-4) 03/02/24 19:30 Urine Mucus Rare /hpf (None) H 03/02/24 19:30 Urine HCG, Qual Not Detected (Not Detectd) 03/02/24 19:30 Urine Opiates Screen Not Detected (NotDetected) 03/02/24 19:51 Ur Oxycodone Screen Not Detected (NotDetected) 03/02/24 19:51 Urine Methadone Screen Not Detected (NotDetected) 03/02/24 19:51 Ur Barbiturates Screen Not Detected (NotDetected) 03/02/24 19:51 U Tricyclic Antidepress Not Detected (NotDetected) 03/02/24 19:51 Ur Phencyclidine Scrn Not Detected (NotDetected) 03/02/24 19:51 Ur Amphetamines Screen Not Detected (NotDetected) 03/02/24 19:51 U Methamphetamines Scrn Not Detected (NotDetected) 03/02/24 19:51 U Benzodiazepines Scrn Not Detected (NotDetected) 03/02/24 19:51 Urine Cocaine Screen Not Detected (NotDetected) 03/02/24 19:51 U Marijuana (THC) Screen Detected (NotDetected) H 03/02/24 19:51 SARS-CoV-2 (PCR) Not Detected (Not Detectd) 03/02/24 21:27 03/03/24 09:05 IDENTIFYING DATA: Patient is a 44-year-old but female, unemployed and currently homeless HPI: Patient presented to the hospital on 03/02 with psychiatric concerns. Per EPS note, "Patient presented to ED related to suicidal ideation with a plan to overdose. Patient assessed in ER 7 from [id number]. Patient verbalizes she was having suicidal thoughts with a plan to take all her medications. Patient states she expressed her plan to her childrens father and he took the pills away from her. States her father in law brought her into ED. Patient states she has been feeling like she would be better off . Patient states that she lost her residence, can no longer stay with her childrens father, has no job, and no way to make money. Patient denies homicidal ideations. Patient denies auditory and visual hallucinations. Patient denies paranoia and no delusional thoughts noted on assessment. Patient verbalizes decreased appetite, poor sleep with difficulty falling asleep and staying asleep. Patient denies complaints maintaining hygiene. Patient denies alcohol use, verbalizes daily marijuana use but denies any other substance use. UDS+THC. Patient verbalizes both smoking cigarettes and vaping daily." Upon today's interview, she states that she was supossed to go to [facility] upon her last discharge, and that her friend was going to help her until she got there. When she got out, her friend did not answer the door. She went to her children's fathers house, and just started thinking about it would be easier if she was not alive anymore. She wanted to take all her medication. She is feeling hopeless and helpless. Patient was very tearful during the interview. She was speaking of trying to donate plasma, and not being able to. She feels like all the doors are closing in her face. She is feeling very depressed, and continues to feel suicidal, with no plan. She has increasing irritability. She has problems initiating sleep, and staying asleep. She states her appetite is good. She would like to go to rehab upon discharge. Patient denies any homicidal ideations intent or plan. At this time patient denies any auditory or visual hallucinations. Patient denies any flight of ideas racing thoughts and increased in goal directed behavior. Patient admits to using meth, cannabis and cigarettes. PAST PSYCHIATRIC HISTORY: Patient has a history of bipolar disorder and generalized anxiety disorder. Patient denies being on any psychiatric medications. Patient reports prior inpatient hospitalizations, most recent being here on 02/19/24. Patient follows up with [facility]. Patient denies any history of suicide attempts in the past. PMH: as per ER note ALLERGIES: as per EMR SUBSTANCE USE HISTORY: Patient has a history of alcohol use disorder however has not drank alcohol since 2011 FAMILY PSYCHIATRIC/SUBSTANCE USE HISTORY: Patient reports father has mental illness and abused alcohol SOCIAL HISTORY: Patient was born in [place]. She is currently homeless however was recently staying at a friend's house. She completed schooling up to ninth grade. She has 2 children and is currently however . She denies any legal history. MENTAL STATUS EXAM: General Appearance: Patient appears to be stated age is alert, directable, and attempts to cooperate. Patient appears to have fair hygiene and grooming. Dressed casually. Behavior: Patient is seated without any agitated behavior. Patient was tearful during encounter, and very fidgety. Speech: Patient's speech is fluent and nonpressured. Mood/Affect: Patient reports their mood is depressed and hopeless, affect is congruent and constricted. Suicidality/Homicidality: Patient denies having any homicidal ideation intent or plan. Denies any suicidal ideations intent or plan Perceptions: Patient denies any visual hallucinations and denies any auditory hallucinations Though content/process: There is no evidence of any delusional thought content and thought process is linear and goal-directed. Memory and concentration: AOX3, grossly intact for the purposes of this session. Can spell "WORLD" backwards Judgment and insight: Fair STRENGTHS/WEAKNESSES: strength is that patient is resilient and she has been able to refrain from alcohol despite stressors. Weakness is that patient has poor judgment and is impulsive INTELLECT: Average IMPRESSIONS: Bipolar disorder, current episode depressed Nicotine dependence cannabis use disorder methamphetamine use disorder PLAN: -Patient is admitted under voluntary status to [facility] for stabilization of psychiatric symptoms and safety. Patient has signed adult voluntary form and medication consent and is placed in patient's chart. -Medications : Latuda 60 mg p.o. with dinner for depression/mood stabilization. trazodone 50 mg at bedtime for sleep. [place] 300mg qhs for mood stabilizaion -Ativan and Haldol PRN for agitation/aggression -Patient was informed of the risks, benefits and side effects of the medication and patient verbally consented to taking the medications. Patient signed med consent form and was placed in chart. -Internal Medicine consult to perform medical evaluation and physical. -NRT -nicotine patch -SW on board for discharge planning. Encourage patient to participate in groups to work on coping skills. Patient would like to be discharged to rehab. will inquire into this
[2024-03-03 13:04] LABS: ALT 15 U/L (4-34); AST 24 U/L (14-36); African American GFR (CKD) >90 (>60 ml/min/1.73 sqM); Albumin 3.6 g/dL (3.5-5.0); Alkaline Phosphatase 53 U/L (38-126); Anion Gap 1 mmol/L; Bilirubin,Unconjugated 0.4 mg/dL (0.0-1.1); Blood Urea Nitrogen 15 mg/dL (7-17); Carbon Dioxide 29 mmol/L (22-30); Chloride 106 mmol/L (98-107); Glucose 84 mg/dL (74-99); Non-African American GFR(CKD) >90 (>60 ml/min/1.73 sqM); Potassium 4.5 mmol/L (3.5-5.1); Sodium 136 mmol/L (137-145); Total Bilirubin 0.4 mg/dL (0.2-1.3); Total Protein 6.2 g/dL (6.3-8.2)
[2024-03-03] MEDS ORDERED: LURASIDONE 40 MG TAB PO SCH (18:00)
[2024-03-03] MEDS: LURASIDONE 60 MG TAB PO SCH (18:28)
[2024-03-03 20:21] LABS: LDL Cholesterol,Calculated 68.3 mg/dL (0.0-131.0)
[2024-03-03] MEDS: LITHIUM CARBONATE 300 MG CAP PO SCH (20:27)
[2024-03-03] MEDS: traZODone HCL 50 MG TAB PO SCH (20:27)
--- NOTE | 2024-03-03 23:09 | P.PN ---
Progress Note - Text Progress Note Date: 03/03/24 patient refusing to see medical doctor , claiming that she has no medical concerns
[2024-03-04 06:58] VITALS: TEMP 98.7
--- NOTE | 2024-03-04 11:35 | P.PN ---
Progress Note - Text Progress Note Date: 03/04/24 Interval History: Patient was seen [wandering the hallways] and was directable and agreeable to speak with health technical writer in the office. She states that she feels weirdly good today. She is feeling no irritation. She reports that her energy level is good today. She states that she is not a fan of pills, however, she is feeling quite good with her medication regimen. She endorses a good appetite, and claims she slept well last night. She is going to call [facility] intake department today, to see about getting accepted. At this time patient denies any suicidal or homicidal ideations, intent or plan. Patient denies any auditory, visual hallucinations and denies any paranoia or delusions. Patient denies any side effects from the medications and has been compliant with meds. MENTAL STATUS EXAM: General Appearance: Patient appears to be stated age is alert, directable, and attempts to cooperate. Patient appears to have fair hygiene and grooming. Dressed casually. Behavior: Patient is seated without any agitated behavior. She is very fidgety, not able to sit still. more cooperative today Speech: Patient's speech is fluent and nonpressured. Mood/Affect: Patient reports their mood is improving, affect is congruent and constricted. improving mildly Suicidality/Homicidality: Patient denies having any homicidal ideation intent or plan. Denies any suicidal ideations intent or plan Perceptions: Patient denies any visual hallucinations and denies any auditory hallucinations Though content/process: There is no evidence of any delusional thought content and thought process is linear and goal-directed. Memory and concentration: AOX3, grossly intact for the purposes of this session. Judgment and insight: improving mildly IMPRESSIONS: Bipolar disorder, current episode depressed Nicotine dependence cannabis use disorder methamphetamine use disorder PLAN: -Patient is admitted under voluntary status to [facility] for stabilization of psychiatric symptoms and safety. Patient has signed adult voluntary form and medication consent and is placed in patient's chart. -Medications : Latuda 60 mg p.o. with dinner for depression/mood stabilization. trazodone 50 mg at bedtime for sleep. [place] 300mg with dinner for mood stabilization -Ativan and Haldol PRN for agitation/aggression. -NRT -nicotine patch -SW on board for discharge planning. Encourage patient to participate in groups to work on coping skills. Patient would like to be discharged to rehab. will have her call intake today.
[2024-03-04] MEDS: LITHIUM CARBONATE 300 MG CAP PO SCH (18:06)
[2024-03-05 07:53] VITALS: RESP 20
--- NOTE | 2024-03-05 11:14 | P.PN ---
Progress Note - Text Progress Note Date: 03/05/24 Interval History: Patient was seen [wandering the hallways] and was directable and agreeable to speak with chief underwriter in the office. She states that she is doing pretty good today. She was in group, and has been attending groups. She discussed that she had concerns about taking medications, however, she is happy she is, because she feels better now. She did do the screening with [facility], and we will find out in a day or two if she is accepted. At this time patient denies any suicidal or homicidal ideations, intent or plan. Patient denies any auditory, visual hallucinations and denies any paranoia or delusions. Patient denies any side effects from the medications and has been compliant with meds. MENTAL STATUS EXAM: General Appearance: Patient appears to be stated age is alert, directable, and attempts to cooperate. Patient appears to have fair hygiene and grooming. Dressed casually. Behavior: Patient is seated without any agitated behavior. She is very fidgety, not able to sit still. more cooperative today Speech: Patient's speech is fluent and nonpressured. Mood/Affect: Patient reports their mood is improving, affect is congruent and constricted. improving mildly Suicidality/Homicidality: Patient denies having any homicidal ideation intent or plan. Denies any suicidal ideations intent or plan Perceptions: Patient denies any visual hallucinations and denies any auditory hallucinations Though content/process: There is no evidence of any delusional thought content and thought process is linear and goal-directed. Memory and concentration: AOX3, grossly intact for the purposes of this session. Judgment and insight: improving mildly IMPRESSIONS: Bipolar disorder, current episode depressed Nicotine dependence cannabis use disorder methamphetamine use disorder PLAN: -Patient is admitted under voluntary status to [facility] for stabilization of psychiatric symptoms and safety. Patient has signed adult voluntary form and medication consent and is placed in patient's chart. -Medications : increase Latuda 80 mg p.o. with dinner for depression/mood stabilization. trazodone 50 mg at bedtime for sleep. [place] 300mg with dinner for mood stabilization -Ativan and Haldol PRN for agitation/aggression. -NRT -nicotine patch -SW on board for discharge planning. Encourage patient to participate in groups to work on coping skills. Patient did do the screening for [facility], will wait to hear if she was accepted. Discharge sunday directly to rehab if possible.
[2024-03-05] MEDS ORDERED: NICOTINE GUM (POLACRILEX) 2 MG GUM BUCCAL PRN (16:05)
[2024-03-05] MEDS: LURASIDONE 80 MG TAB PO SCH (18:22)
[2024-03-06 06:30] VITALS: BP 117/72; PULSE 87
--- NOTE | 2024-03-06 11:02 | P.DS ---
Providers Date of admission: 03/02/24 22:52 Expected date of discharge: 03/06/24 Attending physician: Moe Nguyen MD Consults: 03/02/24 23:10 Consult Physician Routine Consulting Provider: Dede Martinez Consult Reason/Comments: History and Physical, New Admission Do you want consulting provider notified?: Yes Primary care physician: Stated None - Discharge Diagnosis(es) (1) Bipolar disorder current episode depressed Current Visit: No Status: Acute Priority: High (2) Cannabis use disorder Current Visit: Yes Status: Acute Priority: Medium (3) Methamphetamine abuse Current Visit: Yes Status: Acute Priority: High (4) Nicotine dependence Current Visit: No Status: Acute Priority: Low Hospital Course: Admission HPI: 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 Per EPS note, "Patient presented to ED related to suicidal ideation with a plan to overdose. Patient assessed in ER 7 from [id number]. Patient verbalizes she was having suicidal thoughts with a plan to take all her medications. Patient states she expressed her plan to her childrens father and he took the pills away from her. States her father in law brought her into ED. Patient states she has been feeling like she would be better off . Patient states that she lost her residence, can no longer stay with her childrens father, has no job, and no way to make money. Patient denies homicidal ideations. Patient denies auditory and visual hallucinations. Patient denies paranoia and no delusional thoughts noted on assessment. Patient verbalizes decreased appetite, poor sleep with difficulty falling asleep and staying asleep. Patient denies complaints maintaining hygiene. Patient denies alcohol use, verbalizes daily marijuana use but denies any other substance use. UDS+THC. Patient verbalizes both smoking cigarettes and vaping daily." Upon today's interview, she states that she was supossed to go to [facility] upon her last discharge, and that her friend was going to help her until she got there. When she got out, her friend did not answer the door. She went to her children's fathers house, and just started thinking about it would be easier if she was not alive anymore. She wanted to take all her medication. She is feeling hopeless and helpless. Patient was very tearful during the interview. She was speaking of trying to donate plasma, and not being able to. She feels like all the doors are closing in her face. She is feeling very depressed, and continues to feel suicidal, with no plan. She has increasing irritability. She has problems initiating sleep, and staying asleep. She states her appetite is good. She would like to go to rehab upon discharge. Patient denies any homicidal ideations intent or plan. At this time patient denies any auditory or visual hallucinations. Patient denies any flight of ideas racing thoughts and increased in goal directed behavior. Patient admits to using meth, cannabis and cigarettes." Hospital course: Upon admission to the unit patient was directable and agreeable to commence treatment and signed adult voluntary form. Patient got along well with other patients on the unit and followed unit protocol. Patient was compliant with the medications and denied any side effects throughout hospital course. Patient was started on Latuda increased to dose of 80 mg with dinner for depression/mood stabilization, trazodone 50 mg nightly for sleep/mood, lithium 300 mg with dinner for mood stabilization/suicidal thoughts. Patient spoke of her stressors and engaged in therapy both group and individual. Patient was also seen by medical team for history and physical exam. Throughout the course of the hospitalization patient gradually improved with regards to mood, anxiety, mood lability, sleep and became more future oriented with improved insight and judgment. On the day of discharge patient denied any suicidal or homicidal ideations intent or plan denied any auditory or visual hallucinations. Patient endorsed wanting to live for her health and her sobriety. The patient denied any access to guns or weapons. Patient denied any paranoia and did not endorse any delusions. Patient does have a significant history of substance abuse and was counseled on abstaining from all substances including alcohol and marijuana. Patient was able to get into [facility] for rehab, she will be taking there directly by [facility]. patient was also counseled on the medications and need for regular compliance and was encouraged to follow-up with their outpatient appointment for mental health and also for primary care. Mental status exam: General Appearance: Patient appears to be poor dentition, stated age is alert, pleasant, and cooperative. Patient is in no acute distress and has improved hygiene and grooming Behavior: Patient is calmly seated without any agitated behavior. Speech: Patient's speech is fluent and nonpressured. Mood/Affect: Patient reports their mood is "better", affect is congruent and euthymic. Suicidality/Homicidality: Patient denies having any suicidal or homicidal ideation intent or plan. Perceptions: Patient denies any auditory or visual hallucinations. Though content/process: There is no evidence of any delusional thought content and thought process is linear and goal-directed. More future oriented Memory and concentration: AOX3, grossly intact for the purposes of this session. Can spell "WORLD" backwards correctly. Judgment and insight: Chronically poor, however has improved with guarded prognosis Impression: Bipolar disorder, current episode depressed Nicotine dependence cannabis use disorder methamphetamine use disorder Plan: -Continue with discharge today as patient has improved and stabilized psychiatrically and is not currently an imminent threat to herself and/or others. Patient will remain at chronically elevated risk for harm to self and/or others due to her impulsivity and substance abuse. -Continue medications: Latuda 80 mg with dinner for depression/mood stabilization, lithium 300 mg with dinner for mood stabilization, trazodone 50 mg nightly for sleep/mood. -Patient was counseled on the need for medication compliance and appropriate follow-up at mental health and also primary care for medical issues. Patient verbalized understanding and agreed. -Social work to help coordinate patient's discharge today, she will be discharged directly to [facility] today. Social work also to arrange for patients follow up appointments with [facility] for psychiatric care along with follow up with primary care provider. -Patient counseled on abstaining from recreational drugs and marijuana and alcohol. Was informed/educated on the adverse effects on their physical and mental health. Patient verbally agreed and understood. -Patient was instructed to return to the hospital or seek immediate medical care if their psychiatric or medical symptoms do worsen or reoccur. Allergies Allergy/AdvReac Type Severity Reaction Status Date / Time tomato AdvReac Face gets Verified 03/02/24 23:33 blotchy Laboratory Results WBC 4.7 k/uL (3.8-10.6) 03/03/24 12:00 RBC 4.62 m/uL (3.80-5.40) 03/03/24 12:00 Hgb 13.5 gm/dL (11.4-16.0) 03/03/24 12:00 Hct 42.2 % (34.0-46.0) 03/03/24 12:00 MCV 91.4 fL (80.0-100.0) 03/03/24 12:00 MCH 29.3 pg (25.0-35.0) 03/03/24 12:00 MCHC 32.1 g/dL (31.0-37.0) 03/03/24 12:00 RDW 13.6 % (11.5-15.5) 03/03/24 12:00 Plt Count 238 k/uL (150-450) 03/03/24 12:00 MPV 7.0 03/03/24 12:00 Neutrophils % 50 % 03/03/24 12:00 Lymphocytes % 36 % 03/03/24 12:00 Monocytes % 9 % 03/03/24 12:00 Eosinophils % 2 % 03/03/24 12:00 Basophils % 1 % 03/03/24 12:00 Neutrophils # 2.3 k/uL (1.3-7.7) 03/03/24 12:00 Lymphocytes # 1.7 k/uL (1.0-4.8) 03/03/24 12:00 Monocytes # 0.4 k/uL (0-1.0) 03/03/24 12:00 Eosinophils # 0.1 k/uL (0-0.7) 03/03/24 12:00 Basophils # 0.0 k/uL (0-0.2) 03/03/24 12:00 Sodium 136 mmol/L (137-145) L 03/03/24 12:00 Potassium 4.5 mmol/L (3.5-5.1) 03/03/24 12:00 Chloride 106 mmol/L (98-107) 03/03/24 12:00 Carbon Dioxide 29 mmol/L (22-30) 03/03/24 12:00 Anion Gap 1 mmol/L 03/03/24 12:00 BUN 15 mg/dL (7-17) 03/03/24 12:00 Creatinine 0.70 mg/dL (0.52-1.04) 03/03/24 12:00 Est GFR (CKD-EPI)AfAm >90 (>60 ml/min/1.73 sqM) 03/03/24 12:00 Est GFR (CKD-EPI)NonAf >90 (>60 ml/min/1.73 sqM) 03/03/24 12:00 Glucose 84 mg/dL (74-99) 03/03/24 12:[address] Glu mg/dL 114 mg/dL 03/03/24 12:00 Hemoglobin A1c 5.6 % (<=6.0) 03/03/24 12:00 Calcium 9.0 mg/dL (8.4-10.2) 03/03/24 12:00 Total Bilirubin 0.4 mg/dL (0.2-1.3) 03/03/24 12:00 Conjugated Bilirubin 0.0 mg/dL (0.0-0.3) 03/03/24 12:00 Unconjugated Bilirubin 0.4 mg/dL (0.0-1.1) 03/03/24 12:00 Delta Bilirubin 0.0 mg/dL (0.0-0.2) 03/03/24 12:00 AST 24 U/L (14-36) 03/03/24 12:00 ALT 15 U/L (4-34) 03/03/24 12:00 Alkaline Phosphatase 53 U/L (38-126) 03/03/24 12:00 Total Protein 6.2 g/dL (6.3-8.2) L 03/03/24 12:00 Albumin 3.6 g/dL (3.5-5.0) 03/03/24 12:00 Triglycerides 56.00 mg/dL (0.00-149.00) 03/03/24 12:00 Cholesterol 152.00 mg/dL (0.00-200.00) 03/03/24 12:00 LDL Cholesterol, Calc 68.3 mg/dL (0.0-131.0) 03/03/24 12:00 VLDL Cholesterol, Calc 11.20 mg/dL (5.00-40.00) 03/03/24 12:00 HDL Cholesterol 72.50 mg/dL (40.00-60.00) H 03/03/24 12:00 Cholesterol/HDL Ratio 2.10 Ratio 03/03/24 12:00 TSH 1.520 mIU/L (0.465-4.680) 03/03/24 12:00 Urine Color Colorless 03/02/24 19:30 Urine Appearance Clear (Clear) 03/02/24 19:30 Urine pH 5.5 (5.0-8.0) 03/02/24 19:30 Ur Specific Sneads 1.015 (1.001-1.035) 03/02/24 19:30 Urine Protein Negative (Negative) 03/02/24 19: Urine Glucose (UA) Negative (Negative) 03/02/24 19:30 Urine Ketones Negative (Negative) 03/02/24 19:30 Urine Blood Negative (Negative) 03/02/24 19: Urine Nitrite Negative (Negative) 03/02/24 19: Urine Bilirubin Negative (Negative) 03/02/24 19: Urine Urobilinogen <2.0 mg/dL (<2.0) 03/02/24 19:30 Ur Leukocyte Esterase Small (Negative) H 03/02/24 19: Urine RBC <1 /hpf (0-5) 03/02/24 19:30 Urine WBC 4 /hpf (0-5) 03/02/24 19:30 Ur Squamous Epith Cells <1 /hpf (0-4) 03/02/24 19: Urine Mucus Rare /hpf (None) H 03/02/24 19:30 Urine HCG, Qual Not Detected (Not Detectd) 03/02/24 19:30 Urine Opiates Screen Not Detected (NotDetected) 03/02/24 19:51 Ur Oxycodone Screen Not Detected (NotDetected) 03/02/24 19:51 Urine Methadone Screen Not Detected (NotDetected) 03/02/24 19:51 Ur Barbiturates Screen Not Detected (NotDetected) 03/02/24 19:51 U Tricyclic Antidepress Not Detected (NotDetected) 03/02/24 19:51 Ur Phencyclidine Scrn Not Detected (NotDetected) 03/02/24 19:51 Ur Amphetamines Screen Not Detected (NotDetected) 03/02/24 19:51 U Methamphetamines Scrn Not Detected (NotDetected) 03/02/24 19:51 U Benzodiazepines Scrn Not Detected (NotDetected) 03/02/24 19:51 Urine Cocaine Screen Not Detected (NotDetected) 03/02/24 19:51 U Marijuana (THC) Screen Detected (NotDetected) H 03/02/24 19:51 SARS-CoV-2 (PCR) Not Detected (Not Detectd) 03/02/24 21:27 Vital Signs Temp 98.7 F 03/04/24 06:57 Pulse 87 03/06/24 06:30 Resp 20 03/05/24 07:53 BP 117/72 03/06/24 06:30 Pulse Ox 98 03/04/24 06:57 FiO2 Patient Condition at Discharge: Stable Plan - Discharge Summary Discharge Rx Participant: Yes New Discharge Prescriptions: New traZODone HCL [Desyrel] 50 mg PO HS 30 Days #30 tab Nicotine 21Mg/24Hr Patch [Habitrol] 1 patch TRANSDERM DAILY 14 Days #14 patch Lurasidone [Latuda] 80 mg PO 1800 30 Days #30 tab Ibuprofen [Motrin] 600 mg PO Q6HR PRN tab PRN Reason: Moderate Pain (Scale 4 To 6) [place] Carbonate 300 mg PO 1800 30 Days #30 cap Discontinued traZODone HCL [Desyrel] 50 mg PO HS PRN 30 Days #30 tab PRN Reason: Insomnia Nicotine 14Mg/24Hr Patch [Habitrol] 1 patch TRANSDERM DAILY 30 Days #30 patch Lurasidone [Latuda] 40 mg PO 1800 30 Days #30 tab Discharge Medication List Ibuprofen [Motrin] 600 mg PO Q6HR PRN tab 03/06/24 [Rx] Arvin Carbonate 300 mg PO 1800 30 Days #30 cap 03/06/24 [Rx] Lurasidone [Latuda] 80 mg PO 1800 30 Days #30 tab 03/06/24 [Rx] Nicotine 21Mg/24Hr Patch [Habitrol] 1 patch TRANSDERM DAILY 14 Days #14 patch 03/06/24 [Rx] traZODone HCL [Desyrel] 50 mg PO HS 30 Days #30 tab 03/06/24 [Rx] Follow up Appointment(s)/Referral(s): None,Stated [Primary Care Provider] - 1-2 days Patient Instructions/Handouts: Bipolar Disorder (DC) Activity/Diet/Wound Care/Special Instructions: Avoid the use of street drugs and alcohol. Take all medications as prescribed. When you are in need of refills on your medications, please contact your medical provider and/or outpatient psychiatrist/provider to have this done. Please go to your scheduled outpatient appointment for aftercare treatment. If symptoms return or become worse, call the crisis line at and/or go to the nearest emergency room for evaluation. National Suicide Hotline 986 Discharge Disposition: OTHER INSTITUTION NOT DEFINED
== END 2024-03-06 11:25 | DRG 753 ==
LOC: EC 18:20 → 3MHU 22:52
PROVIDERS: ADMIT Psychiatry & Neurology Psychiatry; ATTEND Psychiatry & Neurology Psychiatry
DX: F31.30 Bipolar disorder, current episode depressed, mild or moderate severity, unspecified (principal); F41.9 Anxiety disorder, unspecified; F17.210 Nicotine dependence, cigarettes, uncomplicated; J44.9 Chronic obstructive pulmonary disease, unspecified; F15.10 Other stimulant abuse, uncomplicated; F12.10 Cannabis abuse, uncomplicated; R45.851 Suicidal ideations; Z59.00 Homelessness unspecified; Z79.899 Other long term (current) drug therapy; Z81.8 Family history of other mental and behavioral disorders; Z71.51 Drug abuse counseling and surveillance of drug abuser; Z78.1 Physical restraint status; Z91.018 Allergy to other foods; Z88.6 Allergy status to analgesic agent
CPT/HCPCS: 80053; 80061; 80306; 81001; 81025; 82075; 82248; 83036; 84443; 85025; 87635; 99285

== ENCOUNTER 2024-05-29 10:51 | Emergency (ER) | payer OTHER ==
[2024-05-29 11:00] VITALS: RESP 18
[2024-05-29] MEDS: KETOROLAC 15 MG/ML 1 ML VIAL IM STA (11:27)
--- NOTE | 2024-05-29 12:06 | CT ---
EXAMINATION TYPE: CT hip RT wo con DATE OF EXAM: 05/29/2024 11:53 AM COMPARISON: None. CLINICAL INDICATION: Female, 44 years old with history of pain, Abnormal x-ray, right hip pain, TECHNIQUE: Contiguous axial scanning of the right hip without IV contrast. Coronal and sagittal recon structions performed. CT DLP: 1037.3 mGycm, Automated exposure control for dose reduction was used. FINDINGS: The uterus is visualized. There appears to be a cystic structure within the upper pelvis measuring up to at least 6.3 cm, possible related to the left ovary. There is end-stage degenerative change at the right hip with bone on bone debridement along the anter ior and mid weightbearing aspects. Extensive subchondral cystic change and subchondral sclerosis and mild secondary remodeling along the acetabular roof. Marginal spurring is present. No acute fracture seen. IMPRESSION: 1. END-STAGE, [id number] RIGHT HIP OA. 2. NO ACUTE FRACTURE SEEN. 3. PARTIALLY VISUALIZED 6.3 CM CYSTIC STRUCTURE WITHIN THE UPPER PELVIS, POSSIBLY RELATED TO THE LEFT OVARY. Cystic epithelial ovarian neoplasm is a differential consideration. Consider pelvic ultrasoun d as initial workup. More global assessment with CT may be needed. [facility], , 05/29/2024 12:04 PM
--- NOTE | 2024-05-29 13:02 | ED ---
General Adult HPI - General Chief complaint: Extremity Problem,Nontraumatic Stated complaint: Leg pain Time Seen by Provider: 05/29/24 11:01 Source: patient, RN notes reviewed Mode of arrival: wheelchair Limitations: no limitations - History of Present Illness Initial comments: 44-year-old female presents emergency department complaint of right hip pain. Patient states she had outpatient x-ray showing significant changes and she is scheduled for MRI she states she was told lumbar department pain worsened. Patient states she was a former alcoholic. Patient states that pain is persistent and much worse with any weightbearing. Patient offers no other complaints. - Related Data Previous Rx's Medication Instructions Recorded Ibuprofen [Motrin] 600 mg PO Q6HR PRN tab 03/06/24 [place] Carbonate 300 mg PO 1800 30 Days #30 cap 03/06/24 Lurasidone [Latuda] 80 mg PO 1800 30 Days #30 tab 03/06/24 Nicotine 21Mg/24Hr Patch [Habitrol] 1 patch TRANSDERM DAILY 14 Days 03/06/24 #14 patch traZODone HCL [Desyrel] 50 mg PO HS 30 Days #30 tab 03/06/24 Ketorolac [Toradol] 10 mg PO Q8HR #15 tab 05/29/24 Allergies Allergy/AdvReac Type Severity Reaction Status Date / Time tomato AdvReac Face gets Verified 05/29/24 10:56 blotchy Review of Systems ROS Statement: Those systems with pertinent positive or pertinent negative responses have been documented in the HPI. ROS Other: All systems not noted in ROS Statement are negative. Past Medical History Past Medical History: Asthma, COPD History of Any Multi-Drug Resistant Organisms: None Reported Past Surgical History: Orthopedic Surgery Past Anesthesia/Blood Transfusion Reactions: No Reported Reaction Past Psychological History: Anxiety, Bipolar Smoking Status: Vaper Past Alcohol Use History: None Reported Past Drug Use History: Marijuana General Exam Limitations: no limitations General appearance: alert, in no apparent distress Head exam: Present: atraumatic, normocephalic, normal inspection Respiratory exam: Present: normal lung sounds bilaterally. Absent: respiratory distress, wheezes, rales, rhonchi, stridor Cardiovascular Exam: Present: regular rate, normal rhythm, normal heart sounds. Absent: systolic murmur, diastolic murmur, rubs, gallop, clicks GI/Abdominal exam: Present: soft, normal bowel sounds. Absent: distended, tenderness, guarding, rebound, rigid Extremities exam: Present: other (Right hip pain with range of motion neurovascular intact denies deformity) Back exam: Present: normal inspection, full ROM. Absent: tenderness, paraspinal tenderness, vertebral tenderness Neurological exam: Present: alert, oriented X3, CN II-XII intact, reflexes normal. Absent: motor sensory deficit Course Vital Signs 05/29/24 05/29/24 10:57 13:30 Temperature 98.2 F 98 F Pulse Rate 90 87 Respiratory 18 18 Rate Blood Pressure 133/87 130/79 O2 Sat by Pulse 95 96 Oximetry Medical Decision Making - Medical Decision Making Was pt. sent in by a medical professional or institution (, PA, MULTIPLE DRUM SANDER, urgent care, hospital, or snf...) When possible be specific @ -No Did you speak to anyone other than the patient for history (EMS, parent, family, police, friend...)? What history was obtained from this source @ -No Did you review nursing and triage notes (agree or disagree)? Why? @ -I reviewed and agree with nursing and triage notes Were old charts reviewed (outside hosp., previous admission, EMS record, old EKG, old radiological studies, urgent care reports/EKG's, snf records)? Report findings @ -No old charts were reviewed Differential Diagnosis (chest pain, altered mental status, abdominal pain women, abdominal pain men, vaginal bleeding, weakness, fever, dyspnea, syncope, headache, dizziness, GI bleed, back pain, seizure, CVA, palpatations, mental health, musculoskeletal)? @ -[Pain, # arthritis, avascular porosis, leg fracture EKG interpreted by me (3pts min.). @ -None X-rays interpreted by me (1pt min.). @ -None done CT interpreted by me (1pt min.). @ -[CT right hip showing severe osteoarthritis, end-stage, there is evidence of ovarian mass or cyst U/S interpreted by me (1pt. min.). @ -None done What testing was considered but not performed or refused? (CT, X-rays, U/S, labs)? Why? @ -None What meds were considered but not given or refused? Why? @ -None Did you discuss the management of the patient with other professionals (professionals i.e. , PA, MULTIPLE DRUM SANDER, lab, RT, psych nurse, psychotherapist social worker, paper products machine operator, teacher, chairman and chief executive officer, case management manager)? Give summary @ -No Was smoking cessation discussed for >3mins.? @ -No Was critical care preformed (if so, how long)? @ -No Were there social determinants of health that impacted care today? How? (Homelessness, low income, unemployed, alcoholism, drug addiction, transportation, low edu. Level, literacy, decrease access to med. care, penitentiary, rehab)? @ -No Was there de-escalation of care discussed even if they declined (Discuss DNR or withdrawal of care, Hospice)? DNR status @ -No What co-morbidities impacted this encounter? (DM, HTN, Smoking, COPD, CAD, Cancer, CVA, ARF, Chemo, Hep., AIDS, mental health diagnosis, sleep apnea, morbid obesity)? @ -Prior workaholic Was patient admitted / discharged? Hospital course, mention meds given and route, prescriptions, significant lab abnormalities, going to OR and other pertinent info. 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 Patient is found to have ovarian cyst versus mass she is informed of this and will follow-up outpatient for outpatient ultrasound and further workup for neoplasm. Undiagnosed new problem with uncertain prognosis? @ -No Drug Therapy requiring intensive monitoring for toxicity (Heparin, Nitro, Insulin, Cardizem)? @ -No Were any procedures done? @ -No Diagnosis/symptom? @ -Severe osteoarthritis right hip, ovarian mass versus cyst Acute, or Chronic, or Acute on Chronic? @ -Acute Uncomplicated (without systemic symptoms) or Complicated (systemic symptoms)? @ -uncomplicated Side effects of treatment? @ -No Exacerbation, Progression, or Severe Exacerbation? @ -No Poses a threat to life or bodily function? How? (Chest pain, USA, MS, pneumonia, PE, COPD, DKA, ARF, appy, cholecystitis, CVA, Diverticulitis, Homicidal, Suicidal, threat to staff... and all critical care pts) @ -No Disposition Clinical Impression: Osteoarthritis of right hip, Ovarian cyst Disposition: HOME SELF-CARE Condition: Fair Additional Instructions: Please follow-up with your PCP for outpatient ultrasound and further evaluation of ovarian cyst. Please return to the Emergency Department if symptoms worsen or any other concerns. Prescriptions: Ketorolac [Toradol] 10 mg PO Q8HR #15 tab Is patient prescribed a controlled substance at d/c from ED?: No Referrals: Kezia Garcia MD [Primary Care Provider] - 1-2 days Claudio Shelton DO [Doctor of Osteopathic Medicine] - 1-2 days Time of Disposition: 13:01
[2024-05-29 13:32] VITALS: BP 130/79; PULSE 87; TEMP 98
== END 2024-05-29 13:31 | disposition home or self-care (01) ==
LOC: EC 10:51
DX: M16.11 Unilateral primary osteoarthritis, right hip (principal); N83.209 Unspecified ovarian cyst, unspecified side; F17.290 Nicotine dependence, other tobacco product, uncomplicated; Z91.018 Allergy to other foods
CPT/HCPCS: 73700; 99283; 96372; J1885

== ENCOUNTER → 2024-06-26 | Outpatient (CLI) | payer OTHER ==
--- NOTE | 2024-06-27 08:06 | MR ---
EXAMINATION TYPE: MR hip RT wo con DATE OF EXAM: 06/26/2024 9:11 AM CLINICAL INDICATION: Female, 44 years old with history of M16.11 OA RIGHT HIP, Pain and swelling in R ight Hip x 10 years COMPARISON: None. TECHNIQUE: Multiplanar multi-sequential magnetic resonance imaging of the right hip without contrast. IV Contrast: mL None. FINDINGS: Joint spaces and alignment: [id number] articulation with superior migration of the right femoral he ad and acetabulum. Joint/bursal fluid: Small right effusion. Articular cartilage: Normal Acetabular labrum: Degenerative right labrum due to [id number] articulation Muscles/Tendons: Intact The tendons of the gluteal, hamstring, iliopsoas, and adductors are normal in within normal limits without evidence for edema and are intact. Abductor tendon insertions: Intact Intrapelvic structures: Normal Neurovascular structures: Normal Marrow: Subchondral cystic change of the right acetabulum and right femoral head compatible with bone -on-bone articulation with early deformity to the femoral head with flattening. There is cystic vergara e within the left acetabulum compatible with subchondral cystic changes likely from degeneration. Soft tissues: Normal Other: The right ovaries and urinary bladder are unremarkable. 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 No lymphadenopathy is visualized. The left ovary demonstrates large cyst nidia suring up to 6.7 x 4.8 cm which is high T2 low T1 signal. IMPRESSION: 1. Severe degeneration changes of the right hip with subchondral cystic change and [id number] moreno culation. There is associated degenerative labrum. 2. More moderate degeneration changes of the left hip with subchondral cystic change present. 3. Left ovarian 6.7 x 4.8 cm cyst. Ultrasound recommended for surveillance, this predisposes the pat ient to ovarian torsion. [facility], , 06/27/2024 8:03 AM
== END | disposition home or self-care (01) ==
LOC: RADMRIMAIN 07:56
PROVIDERS: ATTEND Family Medicine
DX: M51.379 Other intervertebral disc degeneration, lumbosacral region without mention of lumbar back pain or lower extremity pain (principal); M47.816 Spondylosis without myelopathy or radiculopathy, lumbar region; M16.11 Unilateral primary osteoarthritis, right hip; R93.89 Abnormal findings on diagnostic imaging of other specified body structures; N83.202 Unspecified ovarian cyst, left side

== ENCOUNTER → 2024-07-24 | Outpatient (CLI) | payer OTHER ==
--- NOTE | 2024-07-24 13:46 | US ---
EXAMINATION TYPE: US pelvis complete transvag DATE OF EXAM: 07/24/2024 COMPARISON: CT right hip May 29, 2024 CLINICAL INDICATION: Female, 44 years old with history of N83.202 LEFT OVARIAN CYST; Left ovarian cys t per order. Ct report says left upper pelvis cystic structure possibly related to the left ovary. * Patient has no pelvic pain or vaginal bleeding. TECHNIQUE: Transvaginal (TV) and Transabdominal (TA) . Transabdominal grayscale sonographic images of the pelvis were acquired. Transvaginal sonographic im ages were medically necessary to better assess the following anatomy: Right ovary Doppler imaging: Not performed. FINDINGS: Date of LMP: Unknown per patient EXAM MEASUREMENTS: Uterus: 9.9 x 7.7 x 5.4 cm Endometrial Stripe: 1.1 cm Right Ovary: Obscured Left Ovary: Not seen 1. Uterus: Anteverted Heterogeneous. Subcentimeter complex areas seen in cervix. 2. Endometrium: 1.1 cm 3. Right Ovary: Obscured 4. Left Ovary: Not seen 5. Bilateral Adnexa: Anechoic area seen in left adnexa: 4.4 x 4.9 x 6.4 cm. *Some peripheral flow seen, arterial and venous waveforms seen, however etiology unknown. Unable to see any ovarian tissue if ovary. 6. Posterior cul-de-sac: wnl Confirmation of 6.4 x 4.4 x 4.9 cm thin-walled cyst in the left adnexa. Finding almost certainly rocio gn and most likely ovarian in etiology IMPRESSION: As above. O-RADS 2 lesion. O-RADS 2021 [email or web address] [email or web address], Workstation: [place], 07/24/2024 1:44 PM
== END | disposition home or self-care (01) ==
LOC: RADUSWWP 12:39
PROVIDERS: ATTEND Family Medicine
DX: N83.202 Unspecified ovarian cyst, left side (principal); N85.8 Other specified noninflammatory disorders of uterus
CPT/HCPCS: 76830; 76856